=== PATIENT | male | born 1995 | race Caucasian/White ===

== ENCOUNTER 2018-12-30 13:07 | Emergency (ER) | payer SELFPAY ==
[~2018-12-30] VITALS: Ht 172.7 cm; Wt 56.7 kg
[2018-12-30 13:08] VITALS: BP 120/80
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
[2018-12-30 13:29] VITALS: BP 120/80
--- NOTE | 2018-12-30 13:29 | NUR ---
Patient discharged with v/s stable. Written and verbal after care instructions given and explained. Patient verbalized understanding. Ambulatory, escorted by Bobo TINAJERO, in custody. All questions addressed prior to discharge. Advised to follow up with PMD.
== END 2018-12-30 13:29 | disposition home or self-care (01) ==
LOC: MED 13:07
DX: S93.402A Sprain of unspecified ligament of left ankle, initial encounter (principal); F17.210 Nicotine dependence, cigarettes, uncomplicated; W19.XXXA Unspecified fall, initial encounter; Y93.89 Activity, other specified; Y92.89 Other specified places as the place of occurrence of the external cause; Y99.8 Other external cause status
CPT/HCPCS: 99283